=== PATIENT | female | born 1980 ===

== ENCOUNTER 2023-12-24 15:42 | Outpatient (REF) | payer OTHER, SELFPAY ==
[2023-12-24 21:39] LABS: ALT 22 U/L (14-59); AST 21 U/L (15-37); Albumin 3.9 g/dL (3.4-5.0); Alkaline Phosphatase 65 U/L (46-116); Anion Gap 8.9 mmol/L (3-11); BUN 23 mg/dL (7-18); Bilirubin, Total 0.3 mg/dL (0.2-1.0); CO2 29.1 mmol/L (21.0-32.0); CREATININE 1.1 mg/dL (0.55-1.02); Calcium 9.2 mg/dL (8.5-10.1); Calculated LDL 106 mg/dL (<100); Chloride 105 mmol/L (98-107); Cholesterol 210 mg/dL (<200); Estimated GFR 63.15 (mL/min/1.73m2); Glucose 87 mg/dL (74-106); HDL Cholesterol 91 mg/dL (40-60); Potassium 4.2 mmol/L (3.5-5.1); Sodium 143 mmol/L (136-145); Total Protein 7.1 g/dL (6.4-8.2); Triglyceride 66 mg/dL (<150)
== END 2023-12-24 15:43 | disposition home or self-care (01) ==
LOC: NCHCN 15:42
PROVIDERS: Visit Provider Nurse Practitioner Family
DX: Z00.00 Encounter for general adult medical examination without abnormal findings (principal)
CPT/HCPCS: 80053; 80061

== ENCOUNTER 2024-12-29 09:40 | Outpatient (REF) | payer BC, SELFPAY ==
[2024-12-29 14:45] LABS: Anion Gap 5.8 mmol/L (3-11); BUN 18 mg/dL (7-18); CO2 30.2 mmol/L (21.0-32.0); CREATININE 1.2 mg/dL (0.55-1.02); Calcium 9.3 mg/dL (8.5-10.1); Calculated LDL 106 mg/dL (<100); Chloride 105 mmol/L (98-107); Cholesterol 207 mg/dL (<200); Estimated GFR 56.54 (mL/min/1.73m2); Glucose 84 mg/dL (74-106); HDL Cholesterol 89 mg/dL (40-60); Potassium 4.5 mmol/L (3.5-5.1); Sodium 141 mmol/L (136-145); Triglyceride 63 mg/dL (<150)
== END 2024-12-29 09:41 | disposition home or self-care (01) ==
LOC: NCHCN 09:40
PROVIDERS: PCP Nurse Practitioner Family; Visit Provider Nurse Practitioner Family
DX: Z00.00 Encounter for general adult medical examination without abnormal findings (principal); R79.89 Other specified abnormal findings of blood chemistry
CPT/HCPCS: 80048; 80061

== ENCOUNTER 2025-01-11 08:40 | Outpatient (REF) | payer BC, SELFPAY ==
[2025-01-11 15:23] LABS: COMMENT (LAB VIEW ONLY) 130.06 mg/dL; Microalb ug/mg Crea 8.8 ug/mg Cr
== END 2025-01-11 08:41 | disposition home or self-care (01) ==
LOC: NCHCN 08:40
PROVIDERS: PCP Nurse Practitioner Family; Visit Provider Nurse Practitioner Family
DX: R79.89 Other specified abnormal findings of blood chemistry (principal)
CPT/HCPCS: 82043; 82570

== ENCOUNTER 2025-03-07 15:57 | Outpatient (REF) | payer BC, SELFPAY ==
--- NOTE | 2025-03-07 13:59 | PAPFT_PTH ---
PATIENT: Maggie Mayo LOC: [facility]#:[id number] AGE/SX: 45/F ROOM: RE03/07/[address]: Rowan Kessler : 1980 BED: DIS: 03/07/2025 SPEC #: [id number] RECD: 03/08/25 12:51 STATUS: SAMUEL AMOS #: [id number] SONAL: 03/07/25 13:[address]: Rowan Kessler DEPT: [facility] Cytology RECD BY: Larisa Morin Tissues: 1 - CX/ENDOCX FOR PAP SMEARS Procedures: PAP THIN PREP/[facility] Screening HPV DNA PROBE Comments: [id number] (HPV 16 & 18/45)
== END 2025-03-07 15:58 | disposition home or self-care (01) ==
LOC: NCHCN 15:57
PROVIDERS: PCP Nurse Practitioner Family; Visit Provider Nurse Practitioner Family
DX: Z12.4 Encounter for screening for malignant neoplasm of cervix (principal)
CPT/HCPCS: 88142; 87624